=== PATIENT | male | born 1990 | race Caucasian/White ===

== ENCOUNTER 2020-05-13 15:48 | Emergency (ER) | payer MEDICAID ==
[~2020-05-13] VITALS: Ht 180.3 cm; Wt 72.6 kg
[2020-05-13] MEDS ORDERED: LORAZEPAM 0.5 MG TABLET PO ONE (16:00)
[2020-05-13] MEDS ORDERED: OLANZAPINE 5 MG TABLET PO ONE (16:15)
[2020-05-13] MEDS ORDERED: LORAZEPAM 1 MG TABLET ONE (16:19)
[2020-05-13] MEDS ORDERED: OLANZAPINE 5 MG TABLET ONE (16:20)
--- NOTE | 2020-05-13 16:47 | NUR ---
ne bruno talked to lapd over the phone per pt request.
--- NOTE | 2020-05-13 17:18 | NUR ---
Patient discharged to home in stable condition. Written and verbal after care instructions given. Patient verbalizes understanding of instructions. Stressed follow up or return to ER for worsening s/s.pt walks in steady gait. pt axox4. pt says that has a home to go to. lapd number provided if pt wants to give further details to lapd.
[2020-05-13 17:19] VITALS: BP 151/89
== END 2020-05-13 17:20 | disposition home or self-care (01) ==
LOC: ER 15:48
DX: F15.159 Other stimulant abuse with stimulant-induced psychotic disorder, unspecified (principal)
CPT/HCPCS: A4663